=== PATIENT | male | born 1980 | race Caucasian/White ===

== ENCOUNTER 2023-07-25 21:57 | Emergency (ER) | payer OTHER, SELFPAY ==
[2023-07-25 21:59] VITALS: BP 144/99; BMI 28.9
[2023-07-25] MEDS: NSS 1000 IV (22:45)
[2023-07-25 22:52] LABS: % Basophils 0.2 % (0-2); % Eosinophils 2.5 % (0-6); % Immature Granulocytes 0.4 % (0-0.5); % Lymphocytes 26.7 % (20.5-51.1); % Monocytes 7.5 % (1.7-9.3); % Neutrophils 62.7 % (42.2-75.2); Absolute Eosinophils 0.2 10^3/uL (0-0.7); Absolute Lymphocytes 2.5 10^3/uL (1.2-3.4); Absolute Monocytes 0.7 10^3/uL (0.1-0.6); Absolute Neutrophils 5.9 10^3/uL (1.4-6.5); Hematocrit 45.2 % (39.0-52.0); Hemoglobin 16.7 g/dL (13.0-18.0); Mean Corp Hgb Conc. 36.9 g/dL (33.0-37.0); Mean Corpuscular Hgb 32.4 pg (27.0-31.0); Mean Corpuscular Volume 87.6 fL (80.0-94.0); Mean Platelet Volume 9.5 fL (7.4-10.4); Nucleated Red Blood Cells % 0 % (-); Platelet Count 257 10^3/uL (130-400); Red Blood Cell Count 5.16 10^6/uL (4.70-6.10); Red Cell Dist. Width 14.3 % (11.5-14.5); White Blood Cell Count 9.4 10^3/uL (4.8-10.8)
[2023-07-25 22:58] LABS: Urine Albumin Negative (Neg - Trace); Urine Bilirubin Negative (Negative); Urine Character Clear (Clear); Urine Color Yellow; Urine Glucose Negative (Negative); Urine Ketone Negative (Negative); Urine Leukocyte Trace (Negative); Urine Nitrite Negative (Negative); Urine Occult Blood Negative (Negative); Urine Specific Gravity 1.015 (<1.030); Urine Urobilinogen Negative (Neg - 1+)
--- NOTE | 2023-07-25 23:09 | ED.GENMED ---
History of Present Illness
General
Chief Complaint: Abdominal Symptoms
Source: patient
Exam Limitations: none
Time Seen by Provider: 07/25/23 22:37
Travel History
Have you had any contact with someone who has COVID-19?: No
Do you have any symptoms of coronavirus? Fever > 100 degrees, chills, cough, shortness of breath, sore throat, loss of taste or smell, muscle aches, or headache?: No
History of Present Illness
History of Present Illness:
This is a 43 year old male that comes in with c/o abd pain, vomiting and diarrhea. States that he started on Ozempic 3 weeks ago. States that he has been increasing his dosage and on Wednesday he started his third week. State that On Wednesday he
felt sick. States that this continued to get worse and last night he was vomiting and has diarrhea. State that he went today to a place to get IV fluids. States that the pain in his stomach is unbearable. Denies any fever, chills, chest pain, SOB,
headache, dizziness, urinary burning.
Past History
Past History
ED Past Medical History: Hypercholesterolemia and Other (Previous shingles)
ED Past Surgical History: None
Social History
Tobacco: Non-smoker
Alcohol: Occasional
Personal:
Living: with family
Family History
Family History: Negative Diabetes, Hypertension or CAD
Review of Systems
Review of Systems
All Other Systems: ROS reviewed and negative except as documented in HPI and ROS
Constitutional: Reports no symptoms; Denies fever or chills
EENT: Reports no symptoms
Respiratory: Reports no symptoms; Denies cough or trouble breathing
Cardiac: Reports no symptoms; Denies chest pain
ABD/GI: Reports abdominal pain, nausea, vomiting and diarrhea
: Reports no symptoms; Denies dysuria, frequency or urgency
Musculoskeletal: Reports no symptoms
Skin: Reports no symptoms
Neurological: Reports no symptoms; Denies dizzy or headache
Psychiatric: Reports no symptoms
Phy Exam
General Physical Exam
General Presentation: mild distress
General age: appears stated age
General Skin: warm and dry
General Habitus: normal
General Mental: alert
General Hydration: appears well hydrated
ENT Exam
ENT Exam: TM's normal, pharynx normal and neck supple
Eye Exam
Eye Exam: EOMI
Cardiovascular Exam
Cardiovascular Exam: regular rate/rhythm, no edema, no murmur and normal peripheral pulses
Pulmonary Exam
Pulmonary Exam: lungs clear, no respiratory distress, no rales, chest non tender, no crackles, no rhonchi, no wheezing and no cough
Gastrointestinal Exam
Gastrointestinal Exam: soft, no organomegaly, no pulsatile mass, non distended, tender (Generalized abd tenderness with palpation) and other (Hyperactive bowel sounds)
Musculoskeletal Exam
Musculoskeletal Exam: full ROM and no edema
Skin Exam
Skin Exam: normal color, warm/dry, no rash and no petechia
Psychiatric Exam
Psychiatric Exam: normal mood/affect
Course
Orders/Labs/Results
Orders:
Orders
07/25/23 22:44
Complete Blood Count/With Diff Urgent
Comprehensive Metabolic Panel Urgent
Lipase Urgent
0.9% Sodium Chloride 1000 ml [Nss] 1,000 ml IV BOLUS
07/25/23 22:49
Urinalysis Reflex To Culture Urgent
Date Specimen was Collected: 07/25/23
Time Specimen was Collected: 22:48
Urine Microscopic Reflex Cult Urgent
07/25/23 23:08
Dicyclomine HCl [Bentyl] 20 mg IM NOW STA
Ondansetron Injectable [Zofran] 4 mg IV NOW STA
07/25/23 23:09
Ketorolac [Toradol] 30 mg IV NOW STA
Abnormal Lab Results
07/25/23 07/25/23
22:44 22:49
MCH 32.4 H pg
(27.0-31.0)
Absolute Monos (auto) 0.7 H 10^3/uL
(0.1-0.6)
BUN 8 L mg/dl
(9-20)
Glucose 104 H mg/dl
(70-99)
Leukocyte Esterase Rfl Trace A
(Negative)
Urine Bacteria (Reflex) Few A
(Negative)
07/25/23 22:44
07/25/23 22:44
Glucose nonfasting, Urine negative for infection. Lipase normal at 88,
Vital Signs
Initial and Last Documented VS:
Initial Vital Signs
Temp Pulse Resp BP Pulse Ox
98.3 F 89 16 144/99 97
07/25/23 21:59 07/25/23 21:59 07/25/23 21:59 07/25/23 21:59 07/25/23 21:59
Last Documented Vital Signs
Temp Pulse Resp BP Pulse Ox
98.3 F 75 16 115/78 99
07/25/23 21:59 07/26/23 00:41 07/26/23 00:41 07/26/23 00:41 07/26/23 00:41
MDM/Problems Addressed
Differential Diagnosis Includes:
Reaction to medication
MDM/Problems Addressed:
This is a 43 year old male that comes in with c/o abd pain, vomiting and diarrhea. Patient started Ozempic 3 weeks ago and has been increasing his dosage as directed. States that he started his 3rd week on Wednesday and started to get sick on
Wednesday. States that he has vomiting, diarrhea and the worse abd pain ever. Patient went to a infusion center today for fluids.
Will check labs, and medicate for pain.
back into see patient. States that he is feeling much better. States that he is ready to go home. Will have patient stop the Ozempic and follow up with the family doctor. Increase her water intake to 8-8oz glasses daily. Will sent a prescription for
Zofran to his pharmacy. Patient to return with any concerns.
Chronic conditions affecting care:
NA
Acute Exacerbation and/or Progression of Chronic Illness:
NA
*Pulse Oximetry
Patient hypoxic: no
*EKG
Interpreted by ED Provider?: NA
Rate: EKG- N/A
*[employer] Interpretation
Rate: [employer]- N/A
*Critical Care Note
Total Time (30-74mins, 75-104mins- exclusive of procedures): Not Applicable
ED Attending Note
-
Portions of this chart may have been created with voice recognition software.� Occasional wrong word or��sound alike� substitutions may have occurred due to the inherent limitations of voice recognition software.
Discharge Plan
Departure
Patient Disposition: Home (Routine Discharge)
Date of Disposition: 07/26/23
Time of Disposition: 00:47
Patient with high blood pressure during this ER visit?: No
Condition: Good
Covid-19: Not Applicable
Discharge Problem:
Adverse Reaction to medication
Instructions: Adverse Drug Reactions, Adult (DC)
Prescriptions:
New
ondansetron 4 mg tablet,disintegrating
4 mg PO Q8H PRN (Reason: nausea and vomiting) Qty: 7 0RF
No Action
Clotrimazole
1 applic topical BID
triamcinolone acetonide 1 APPLIC cream
60 gm TP TID Qty: 1 0RF
Referrals:
Shahid Moran MD [Family Provider] - Follow up in 2-3 days
Activity Restrictions/Additional Instructions:
As discussed, please stop the Ozempic. Please increase your water intake to 8-8oz glasses daily. Stay away form milk and milk products until the diarrhea stops. Follow up with the family doctor for recheck. A prescription for Zofran has been sent to
your Pharmacy to help with the nausea/vomiting. IF YOU HAVE ANY OTHER CONCERNS PLEASE RETURN TO THE EMERGENCY ROOM.
Interventions
Interventions:
*Risk Screen - Suicide Last Done: 07/25/23 21:59
*General Assessment Last Done: 07/25/23 22:24
*Neglect/Abuse Screening Last Done: 07/25/23 21:59
ED- Fall Risk Assessment Last Done: 07/25/23 22:25
*ED COVID-19 Vaccine History Last Done: 07/25/23 21:59
TD-Xqeznf-Ipatxlajcm Assessment Last Done: 07/25/23 22:34
Discharge Date and Time
Print Language: ISRAELI
[2023-07-25 23:10] LABS: ALT (SGPT) 45 U/L (0-50); AST (SGOT) 34 U/L (17-59); Albumin 4.6 g/dl (3.5-5.0); Alkaline Phosphatase 73 U/L (38-126); Blood Urea Nitrogen 8 mg/dl (9-20); Calcium 9.7 mg/dl (8.4-10.2); Carbon Dioxide 25 mmol/L (22-30); Chloride 105 mmol/L (98-107); Estimated Creatinine Clearance 124 ml/min; Glucose 104 mg/dl (70-99); Lipase 88 U/L (23-300); Potassium 3.8 mmol/L (3.5-5.1); Sodium 137 mmol/L (135-145); Total Bilirubin 0.7 mg/dl (0.2-1.3); Total Protein 7.2 g/dl (6.3-8.2); eGFR > 60.00
[2023-07-25 23:11] LABS: Urine Bacteria Few (Negative); Urine Red Blood Cell 0-2 /HPF (0-2); Urine Squamous Cell 0-2 /LPF (Few)
[2023-07-25] MEDS: TORADOL 30 MG IV (23:19)
[2023-07-25] MEDS: BENTYL 20 MG IM (23:19)
[2023-07-25] MEDS: ZOFRAN 4 MG IV (23:19)
[2023-07-26 00:41] VITALS: BP 115/78
== END 2023-07-26 00:58 | disposition home or self-care (01) ==
LOC: EMR 21:57
PROVIDERS: Clinical Nurse Specialist Family Health; EMERGENCY PHYSICIAN Emergency Medicine; FAMILY PHYSICIAN Family Medicine
DX: R10.9 Unspecified abdominal pain (principal); R11.10 Vomiting, unspecified; R19.7 Diarrhea, unspecified; T38.3X5A Adverse effect of insulin and oral hypoglycemic [antidiabetic] drugs, initial encounter; X58.XXXA Exposure to other specified factors, initial encounter
CPT/HCPCS: 99284; 96374; 96375; 96361; 96372; 80053; 81003; 81015; 83690; 85025